=== PATIENT | female | born 1945 | race Caucasian/White ===

== ENCOUNTER 2020-05-13 11:52 | Emergency (ER) | payer MEDICARE, SELFPAY ==
--- NOTE | ~2020-05-13 | XR_ITS ---
EXAMINATION: XR wrist LT min 3V DATE: 05/13/2020 12:20 INDICATION: Wrist pain after dog bite TECHNIQUE: Posteroanterior, ulnar deviation, oblique, and lateral views of the left wrist were obtain ed. COMPARISON: None available FINDINGS: There is soft tissue swelling of the wrist. No acute osseous abnormality is identified. The re is advanced osteoarthritis at the first carpometacarpal joint. Calcified atherosclerosis is noted. IMPRESSION: 1. Wrist soft tissue swelling without acute osseous abnormality. 2. Advanced osteoarthritis at the first carpometacarpal joint. Reviewed, dictated and finalized at location A.
[2020-05-13 11:56] VITALS: BP 130/62; PULSE 70; RESP 18; TEMP 36.4; O2SAT 98
--- NOTE | 2020-05-13 12:16 | ED.GENADULT ---
HPI - General Adult General Chief complaint: Animal Bite Stated complaint: dog bite Time Seen by Provider: 05/13/20 12:10 Source: patient Mode of arrival: ambulatory Limitations: no limitations History of Present Illness HPI narrative: Patient is a 75-year-old female who presents to emergency department for evaluation of dog bite to the left wrist 1 superficial linear laceration along the lateral aspect of the wrist and 1 on the palmar aspect that is more consistent with a puncture wound patient on arrival to emergency department per private vehicle is in no distress not taking anything for her pain patient notes her tetanus is not likely up-to-date patient was out in her yard when her neighbors dog ran out and bit the patient Related Data Home Medications Medication Instructions Recorded Confirmed amoxicillin 05/13/20 aspirin [Aspir-81] 05/13/20 atorvastatin 05/13/20 furosemide 05/13/20 metoprolol succinate PO 05/13/20 sacubitril-valsartan [Entresto] tablet 05/13/20 spironolactone 05/13/20 Allergies Allergy/AdvReac Type Severity Reaction Status Date / Time No Known Allergies Allergy Verified 05/13/20 12:53 Review of Systems Review of Systems: All systems reviewed & are unremarkable except as noted in HPI and below PMFSH Social History Social History (Updated 05/13/20 @ 12:17 by Joe Oliveira PA-C) Smoking status: Never smoker Gender identity (if verbalized by the patient): Female Exam Narrative: Exam Narrative: GENERAL: Well-appearing, well-nourished, and in no acute distress. HEAD: Normocephalic, atraumatic. EYES: PERRLA and EOMI. ENT: Nares clear, no rhinorrhea or epistaxis. Mucous membranes moist. EXTREMITIES: Normal range of motion. No edema. SKIN: Warm, dry, no rash. Puncture wound of the palmar aspect of the left hand with 1 cm linear superficial laceration along the lateral aspect of the wrist joint NEURO: No focal deficits. Alert and oriented x3. Neurovascularly intact PSYCH: Normal mood and affect. Course Course Emergency Course: Patient in the room in no distress aware of case findings treatment plan and diagnosis was given tetanus in the emergency department will be sent home with antibiotics with primary care follow-up given instructions on reasons to return Vital Signs Vital signs: Vital Signs Temperature 97.6 F 05/13/20 11:56 Pulse Rate 70 08/22/20 11:56 Respiratory Rate 18 05/13/20 11:56 Blood Pressure 130/62 05/13/20 11:56 Pulse Oximetry 98 05/13/20 11:56 Temperature 97.6 F 05/13/20 11:56 Pulse Rate 70 05/13/20 11:56 Respiratory Rate 18 05/13/20 11:56 Blood Pressure 130/62 05/13/20 11:56 Pulse Oximetry 98 05/13/20 11:56 Medical Decision Making MDM Narrative Medical decision making narrative: Patients injury or pain is consistent with musculoskeletal etiology. No signs of neurological or vascular compromise on exam. Compartments and tisues are soft without signs of compartment syndrome. Pain is felt appropriate for further evaluation on an outpatient basis. Vital Signs Vital Signs: Vital Signs Temperature 97.6 F 05/13/20 11:56 Pulse Rate 70 05/13/20 11:56 Respiratory Rate 18 05/13/20 11:56 Blood Pressure 130/62 05/13/20 11:56 Pulse Oximetry 98 05/13/20 11:56 Temperature 97.6 F 05/13/20 11:56 Pulse Rate 70 05/13/20 11:56 Respiratory Rate 18 05/13/20 11:56 Blood Pressure 130/62 05/13/20 11:56 Pulse Oximetry 98 05/13/20 11:56 Imaging Data Radiologist's impression: ITS Impressions Wrist X-Ray 05/13/20 12:27 IMPRESSION: 1. Wrist soft tissue swelling without acute osseous abnormality. 2. Advanced osteoarthritis at the first carpometacarpal joint. Discharge Plan Discharge Clinical Impression: Puncture wound of left wrist, Dog bite Patient Disposition: Home, Self-Care Condition: Stable Instructions: Antibiotic Form, Animal Bite (ED) Additional Instru
[2020-05-13] MEDS: ACETAMINOPHEN 500 MG TABLET 1000 MG PO (12:57)
[2020-05-13] MEDS: AMOXICILLIN/CLAVULANATE K 875-125 MG TAB 1 TABLET PO (12:58)
[2020-05-13] MEDS: TETANUS,DIPHTHERIA,AC PERTUSSIS ADULT (0.5 ML) BOOSTRIX IM (12:59)
== END 2020-05-13 13:08 | disposition home or self-care (01) ==
PROVIDERS: Emergency Provider Emergency Medicine; PCP Family Medicine
DX: S61.552A Open bite of left wrist, initial encounter (principal); Z79.82 Long term (current) use of aspirin; M19.032 Primary osteoarthritis, left wrist; W54.0XXA Bitten by dog, initial encounter; Z23 Encounter for immunization
CPT/HCPCS: 73110; 90471; 90715; 99283; A9270

== ENCOUNTER 2021-06-13 20:38 | Observation (INO) | payer MEDICARE, SELFPAY ==
--- NOTE | ~2021-06-13 | XR_ITS ---
EXAMINATION: XR chest 2V DATE: 06/13/2021 21:33 INDICATION: Hyperkalemia. Lightheaded. TECHNIQUE: PA and lateral views of the chest were obtained. COMPARISON: Chest radiograph dated 03/11/[address] dated 04/03/2017 FINDINGS: Mild increased interstitial pattern at the right lung base consistent with minimal pulmonary edema. N o pleural effusion or pneumothorax. Mild cardiomegaly. Median sternotomy wires, ostial markers and m ediastinal surgical clips consistent with prior coronary artery bypass grafting. Aortic valve repair. Single lead cardiac pacemaker/AICD with lead tip in the right ventricle. Mild thoracic kyphosis with severe spondylosis and mild anterior wedging of a few mid and lower thoracic vertebral bodies. IMPRESSION: 1. Minimal pulmonary edema at the right lung base. 2. Cardiomegaly. Reviewed, dictated and finalized at location A.
--- NOTE | 2021-06-13 21:21 | ECG_ITS ---
Measurements Intervals [place] Rate: 54 P: 40 OH: 190 QRS: 64 QRSD: 118 T: 133 QT: 444 QTc: 422 Interpretive Statements SINUS BRADYCARDIA POSSIBLE LEFT ATRIAL ENLARGEMENT INTRAVENTRICULAR CONDUCTION DELAY CANNOT RULE OUT SEPTAL INFARCT, AGE INDETERMINATE ST-T WAVE ABNORMALITY IN LAT/HIGH LAT LEADS- CONSIDER ISCHEMIA BASELINE ARTIFACT- V5 ABNORMAL ECG Electronically Signed On 06-14-2021 6:26:24 CDT by Pawan Adame D.O.
[2021-06-13 21:22] VITALS: BP 122/74; PULSE 60; RESP 14; TEMP 36.7; O2SAT 98
[2021-06-13 21:38] VITALS: BP 103/50; PULSE 55; RESP 22; TEMP 36.8; O2SAT 100
[2021-06-13 22:03] LABS: Basophils Absolute Auto 0.1 K/mm3 (0.0-0.1); Basophils Percent Auto 0.4 % (0.2-1.2); Eosinophils Absolute Auto 0.2 K/mm3 (0-0.3); Eosinophils Percent Auto 1.5 % (0-4.4); Hematocrit 33.9 % (37.0-47.0); Hemoglobin 10.6 g/dL (12.0-15.0); Immature Granulocyte Absolute 0.11 K/mm3 (0.00-0.031); Immature Granulocyte Percent A 0.7 % (0-0.5); Lymphocytes Absolute Auto 2.86 K/mm3 (0.9-3.2); Lymphocytes Percent Auto 18.3 % (18.3-44.2); Mean Corpuscular HGB Conc 31.3 g/dl (32-36); Mean Corpuscular Hemoglobin 29.9 pg (26-34); Mean Corpuscular Volume 95.8 fl (80-100); Mean Platelet Volume 8.8 fl (7.4-10.4); Monocytes Absolute Auto 1.3 K/mm3 (0.1-0.6); Neutrophils Absolute Auto 11.1 K/mm3 (1.3-6.7); Neutrophils Percent Auto 71.1 % (45.5-73.1); Platelet Count Result 356 k/mm3 (150-375); Red Blood Count 3.54 M/mm3 (4.2-5.4); Red Cell Distribution Width 13.6 % (11.5-14.5); White Blood Count 15.7 K/mm3 (4.5-10.0)
[2021-06-13 22:19] LABS: Partial Thromboplastin Time 28.1 SECONDS (22.3-36.8); Prothrombin Time 13.4 Seconds (11.1-14.7)
--- NOTE | 2021-06-13 22:35 | ED.RECABL ---
HPI - Recheck/Abnormal Lab/Rx General Chief Complaint: Recheck/Abnormal Lab/Rx Stated Complaint: abnormal labs Time Seen by Provider: 06/13/21 21:57 Source: patient Mode of arrival: ambulatory Limitations: no limitations History of Present Illness HPI narrative: Patient is a 76-year-old female was told to go to the emergency room due to elevated potassium. Patient states that she was having her pacemaker checked earlier today at [place], had labs drawn, and was told that her potassium was elevated and to go to the emergency room. Patient denies any symptoms at this time. Patient denies any chest pain, shortness of breath, abdominal pain, nausea, vomiting, diarrhea, fever or chills. Related Data Home Medications Medication Instructions Recorded Confirmed atorvastatin 05/13/20 02/12/21 furosemide 05/13/20 02/12/21 metoprolol succinate PO 05/13/20 02/12/21 spironolactone 05/13/20 02/12/21 cholecalciferol (vitamin D3) 50 50 mcg PO DAILY 11/22/20 02/12/21 mcg (2,000 unit) tablet clopidogrel 75 mg tablet 75 mg PO DAILY 02/08/21 02/12/21 amoxicillin 06/13/21 Allergies Allergy/AdvReac Type Severity Reaction Status Date / Time No Known Allergies Allergy Verified 06/13/21 21:48 Review of Systems Review of Systems: All systems reviewed & are unremarkable except as noted in HPI and below Constitutional: Constitutional: Denies body ache(s), Denies chills, Denies excessive sweating, Denies fatigue, Denies fever(s), Denies headache(s), Denies lethargy, Denies malaise, Denies weakness and Denies weight loss Eyes: Eyes: Denies blurry vision, Denies change in vision and Denies loss of vision ENT: Denies dizziness, Denies ear discharge, Denies headache(s), Denies lip swelling, Denies epistaxis, Denies nasal congestion, Denies neck pain, Denies throat swelling and Denies tongue swelling Cardiovascular: Cardiovascular: Denies chest pain, Denies chest pain at rest, Denies chest pain with activity, Denies diaphoresis, Denies rapid heart rate, Denies edema, Denies irregular heart rhythm, Denies lightheadedness, Denies palpitations, Denies dyspnea and Denies dyspnea on exertion Respiratory: Respiratory: Denies chest congestion, Denies cough, Denies hemoptysis, Denies dyspnea and Denies dyspnea on exertion Gastrointestinal: Gastrointestinal: Denies abdominal pain, Denies melena, Denies hematochezia, Denies diarrhea, Denies nausea, Denies vomiting and Denies hematemesis Musculoskeletal: Musculoskeletal: Denies abnormal gait, Denies deformity, Denies joint swelling, Denies limited range of motion, Denies neck pain and Denies numbness Neurologic: Denies Abnormal speech present, Denies abnormal gait, Denies confusion, Denies dizziness, Denies headache(s), Denies focal weakness, Denies loss of vision, Denies numbness, Denies Other visual disturbances, Denies Sensory deficit (Neuro) and Denies weakness Psychiatric: Psychiatric: Denies confusion, Denies depression, Denies auditory hallucinations, Denies homicidal ideation and Denies suicidal ideation Endocrine: Endocrine: Denies cold intolerance, Denies excessive sweating, Denies fatigue, Denies heat intolerance and Denies palpitations Hematologic/Lymphatic: Hematologic/Lymphatic: Denies easy bleeding and Denies easy bruising Allergic/Immunologic: Allergic/Immunologic: Denies lip swelling, Denies throat swelling and Denies tongue swelling PMFSH Past Medical History Medical History Cardiac device in situ 2018 Heart disease HTN (hypertension) Surgical History Surgical History Heart valve replaced (~2016) History of aortic valve replacement with bioprosthetic valve 2016 History of cholecystectomy (~1972) S/P triple vessel bypass (~2016) Family History Family History Mother Hypertension Cataract Glaucoma Father
[2021-06-13 22:39] LABS: Troponin I 0.019 ng/mL (0.000-0.034)
[2021-06-13 22:55] LABS: Anion Gap 10 mmol/L (8-16); Blood Urea Nitrogen 62 mg/dL (7-17); Calcium 9.3 mg/dL (8.4-10.2); Carbon Dioxide 16 mmol/L (22-30); Chloride 115 mmol/L (98-107); Estimated Glomerular Filt Rate 37; Glucose 100 mg/dL (65-110); Potassium 6.3 mmol/L (3.4-5.0); Sodium 141 mmol/L (137-145)
[2021-06-13] MEDS: SODIUM POLYSTYRENE SULFONONATE 15 GM/60 ML BTL PO (23:24)
[2021-06-13] MEDS: DEXTROSE 50% 25 GM/50 ML SYRINGE IV PUSH (23:25)
[2021-06-13 23:30] VITALS: PULSE 60; RESP 24
[2021-06-13] MEDS: INSULIN HUMAN REGULAR (*BKC) 100 UNITS/ML 10 UNITS IV PUSH (23:30)
[2021-06-13] MEDS: ALBUTEROL SULFATE NEB 2.5 MG/0.5 ML INH 10 MG INHALATION (23:31)
--- NOTE | 2021-06-13 23:35 | PCRCNOTE ---
Pt given albuterol hr-long neb for increased potassium. About 5 minutes into tx, pt's heart rate increased from 60 bpm to [address] Elise notified. He asked that I continue to watch it and keep him informed. Heart rate decreased back to 59 bpm with a minute or two. Pt advised to let the nurse know if she starts feeling jittery.
[2021-06-14] VITALS (11 sets, daily range): BP systolic 94–106; BP diastolic 39–48; PULSE 62–84; RESP 16–20; TEMP 36.6–36.8; O2SAT 96–100; BMI 27.6
[2021-06-14] MEDS: SODIUM CHLORIDE 0.9% IV 500 ML 90 ML IV CONT (00:12)
[2021-06-14 00:43] LABS: Glucose Point of Care 66 mg/dl (65-105)
[2021-06-14] MEDS: CALCIUM GLUC 1,000 MG/NS 50 ML 1,000 MG/50 ML BAG 100 MG IVPB (01:45)
--- NOTE | 2021-06-14 03:53 | ADMGEN ---
This patient, Jessenia Padilla, was admitted to Medical Room 249-01. Patient/family oriented to hospital policies and general routines including ID bracelet, bed and alarms, visiting hours, pain management, procedures, bathroom and other care routines, personal items, smoking policy, room service/diet, and visiting hours. Information on how to activate the Rapid Response Team has been discussed. Patient/Family are encouraged to report perceived risks to care and to ask questions if they do not understand what they are told or what they should do.
--- NOTE | 2021-06-14 03:53 | PM.IMHP ---
H&P: HPI History of Present Illness Date/Time: 06/14/21 03:53 Chief Complaint: Abnormal labs Narrative: Patient is a 76-year-old female who is here in the ER due to abnormal labs. She says states that she went to follow-up with her guitar maker hand for device check routinely and had her blood drawn at that time. He was later called by her spa manager/esthetician to go to the ER urgently due to abdominal labs. She was noted to have hyperkalemia with level of 6.5 along with creatinine of 1.3 which is elevated from her previous labs. See otherwise is asymptomatic and reports no complaints she denies any shortness of breath or chest pain no fever chills abdominal pain nausea vomiting. She does report that she has been having lowish blood pressure over the past few months which is not persistent but has been lower than were used to be in the past. Also over the past week she had been having loose stools 3-4 episode more watery than normal which is also been improving the. Due to the increased diarrhea and loose stool she had been taking more bananas and also Pedialyte which has increased amount of potassium in it. She denies any increased leg swelling. She states she was diagnosed with ischemic cardiomyopathy and underwent bypass grafting and aortic valve replacement with pig valve 4 years back. She was noted to have a ejection fraction of around 12% of the time which did improve but not to the extent and had been placed on pacemaker/defibrillator. She states she does not quite know what her ejection fraction currently he is but has improved up to 40% in the recent past. More recently in February she underwent echocardiogram followed by stress test which showed some abnormal features for which she underwent cardiac catheterization and had stent placed in February 2021. She has been on aspirin and Plavix since then. She denies any bleeding or dark stool or blood in stool. Review of Systems Review of Systems: - CONSTITUTIONAL: Denies weight loss, fever and chills. - HEENT: Denies changes in vision and hearing - RESPIRATORY: Denies SOB and cough. - CV: Denies palpitations and CP. - GI: Denies abdominal pain, nausea, vomiting and Reports week history of diarrhea. - : Denies dysuria and urinary frequency. - MSK: Denies myalgia and joint pain. - SKIN: Denies rash and pruritus. - NEUROLOGICAL: Denies headache and syncope. - PSYCHIATRIC: Denies recent changes in mood. Denies anxiety and depression. All systems reviewed & are unremarkable except as noted in HPI and below Constitutional: Constitutional: Reports fatigue and Reports weakness Neurologic: Reports weakness Endocrine: Endocrine: Reports fatigue [facility] Past Medical History Medical History Cardiac device in situ 2018 Heart disease HTN (hypertension) Surgical History Surgical History Heart valve replaced (~2016) History of aortic valve replacement with bioprosthetic valve 2016 History of cholecystectomy (~1972) S/P triple vessel bypass (~2016) Family History Family History Mother Hypertension Cataract Glaucoma Father Heart disease Hypertension Social History Social History Smoking status: Former smoker Gender identity (if verbalized by the patient): Female Meds Home Medications and Allergies Home Medications Medication Instructions Recorded Confirmed Type atorvastatin 05/13/20 02/12/21 History furosemide 05/13/20 02/12/21 History metoprolol succinate PO 05/13/20 02/12/21 History spironolactone 05/13/20 02/12/21 History cholecalciferol (vitamin D3) 50 50 mcg PO DAILY 11/22/20 02/12/21 History mcg (2,000 unit) tablet clopidogrel 75 mg tablet 75 mg PO DAILY 02/08/21 02/12/21 History amoxicillin
[2021-06-14 04:11] LABS: Basophils Absolute Auto 0.1 K/mm3 (0.0-0.1); Basophils Percent Auto 0.5 % (0.2-1.2); Eosinophils Absolute Auto 0.2 K/mm3 (0-0.3); Eosinophils Percent Auto 1.2 % (0-4.4); Hematocrit 32.6 % (37.0-47.0); Hemoglobin 10.2 g/dL (12.0-15.0); Immature Granulocyte Absolute 0.08 K/mm3 (0.00-0.031); Immature Granulocyte Percent A 0.6 % (0-0.5); Lymphocytes Absolute Auto 2.54 K/mm3 (0.9-3.2); Lymphocytes Percent Auto 17.8 % (18.3-44.2); Mean Corpuscular HGB Conc 31.3 g/dl (32-36); Mean Corpuscular Hemoglobin 29.7 pg (26-34); Mean Platelet Volume 8.6 fl (7.4-10.4); Monocytes Absolute Auto 1.2 K/mm3 (0.1-0.6); Monocytes Percent Auto 8.3 % (2.6-8.5); Neutrophils Absolute Auto 10.2 K/mm3 (1.3-6.7); Neutrophils Percent Auto 71.6 % (45.5-73.1); Platelet Count Result 324 k/mm3 (150-375); Red Blood Count 3.43 M/mm3 (4.2-5.4); Red Cell Distribution Width 13.6 % (11.5-14.5); White Blood Count 14.2 K/mm3 (4.5-10.0)
[2021-06-14 04:26] LABS: Anion Gap 11 mmol/L (8-16); Blood Urea Nitrogen 58 mg/dL (7-17); Calcium 9.7 mg/dL (8.4-10.2); Carbon Dioxide 15 mmol/L (22-30); Chloride 116 mmol/L (98-107); Estimated Glomerular Filt Rate 48; Glucose 99 mg/dL (65-110); Potassium 5.5 mmol/L (3.4-5.0); Sodium 142 mmol/L (137-145)
[2021-06-14] MEDS: SODIUM CHLORIDE 0.9% IV 1,000 ML 50 ML IV CONT (05:38)
[2021-06-14] MEDS: SODIUM POLYSTYRENE SULFONONATE 15 GM/60 ML BTL PO (05:38)
[2021-06-14 06:03] LABS: Add Urine Microscopic? YES; Appearance Urine Clear (Clear); Bilirubin Urine Negative (Negative); Blood Urine 1+ (Negative); Color Urine Yellow (Yellow); Glucose Urine UA Negative (Negative); Ketones Urine Negative (Negative); Leukocyte Esterase Ur Trace LEU/UL (NEGATIVE); Mucus Urine Rare /lpf; Nitrate Urine Negative (Negative); Protein Urine Negative (Negative); RBC Urine 0-2 /hpf (0-2); Specific Grav Ur 1.017 (1.001-1.035); Squamous Epithelial Cell Urine Few /hpf (Few); Urobilinogen Urine Negative mg/dL (<2.0); WBC Urine 0-3 /hpf (0-3)
--- NOTE | 2021-06-14 07:04 | P.PNIM_ITS ---
Progress Note: A&P Assessment and Plan (1) Acute hyperkalemia: Code(s): E87.5 - Hyperkalemia Status: Acute Assessment and Plan: * Outside labs checked, was told to report to ED for further management * reports eating more bananas and drinking Pedialyte, probably rational for hyperkalemia * K 6.3 on arrival * K today is 5.5 * Given albuterol, Calcium, insulin, glucose, and Kayexalate in ED * IV hydration 50ml/hr * Hold Entresto and spironolactone for now * trend labs (2) Acute kidney injury superimposed on chronic kidney disease: Code(s): N17.9 - Acute kidney failure, unspecified; N18.9 - Chronic kidney disease, unspecified Status: Acute Assessment and Plan: * On CKD stage 3 baseline creatinine 0.9 currently 1.1 with recent worsening of diarrhea likely pre renal. * Received 1 L fluid in the ER * Creatinine on admission was 1.40 * Trending down, 1.10 today * Hydration at 50ml/hr, watch for overload due to cardiomyopathy * GFR 37 on admission, and 48 with hydration * Continue to trend labs * avoid nephrotoxic medications * hold Entresto, spironolactone, furosemide * Strict I&O * Probably from dehydration (3) Chronic CHF (congestive heart failure): Qualifiers: Heart failure type: unspecified Qualified Code(s): I50.9 - Heart failure, unspecified Code(s): I50.9 - Heart failure, unspecified Status: Acute Assessment and Plan: * Hx of ischemic cardiomyopathy * Chest xray shows minimal pulmonary edema * Strict I and Os * Home lasix on hold for now with DONATO * Consider restarting at later time * Trend output (4) Gout: Code(s): M10.9 - Gout, unspecified Status: Acute Assessment and Plan: * Uric acid elevated at 9.1 * Consider adding allopurinol 50mg/day due to GFR * Gout attack reported in right foot treated with dietart intervention * Presented with edema * Monitor (5) IBS (irritable bowel syndrome): Code(s): K58.9 - Irritable bowel syndrome without diarrhea Status: Acute Assessment and Plan: * Reports 3-4 episodes of loose stools every day over the last week * Consider adding banatrol and Florastor for bulking * Continue to hydrate * Encourage fluids PO (6) HTN (hypertension): Qualifiers: Hypertension type: essential hypertension Qualified Code(s): I10 - Essential (primary) hypertension Code(s): I10 - Essential (primary) hypertension Status: Acute Assessment and Plan: * Blood pressures have been a little soft today. * Current blood pressure is 94/48 * Metoprolol was cut in half at 50 mg b.i.d. * Trend blood pressure * Adjust blood pressure medications as needed (7) Ischemic cardiomyopathy with implantable cardioverter-defibrillator (ICD): Code(s): I25.5 - Ischemic cardiomyopathy; Z95.810 - Presence of automatic (implantable) cardiac defibrillator Status: Acute Assessment and Plan: * Placed in 2019 * EF 14% in 2019 * Improved to about 40% * Continue to monitor (8) Anemia: Code(s): D64.9 - Anemia, unspecified Status: Acute Assessment and Plan: * Hemoglobin hematocrit today are 10.2/32.6 * Trend labs * Anemia labs ordered and pending * No signs of bleeding * Probably related to chronic disease * Looks like in 11/18/20 patient HGB was 12.4 (9) Metabolic aci
--- NOTE | 2021-06-14 07:04 | PM.IMPN ---
Progress Note: A&P Assessment and Plan (1) Acute hyperkalemia: Code(s): E87.5 - Hyperkalemia Status: Acute Assessment and Plan: Outside labs checked, was told to report to ED for further management reports eating more bananas and drinking Pedialyte, probably rational for hyperkalemia K 6.3 on arrival K today is 5.5 Given albuterol, Calcium, insulin, glucose, and Kayexalate in ED IV hydration 50ml/hr Hold Entresto and spironolactone for now trend labs (2) Acute kidney injury superimposed on chronic kidney disease: Code(s): N17.9 - Acute kidney failure, unspecified; N18.9 - Chronic kidney disease, unspecified Status: Acute Assessment and Plan: On CKD stage 3 baseline creatinine 0.9 currently 1.1 with recent worsening of diarrhea likely pre renal. Received 1 L fluid in the ER Creatinine on admission was 1.40 Trending down, 1.10 today Hydration at 50ml/hr, watch for overload due to cardiomyopathy GFR 37 on admission, and 48 with hydration Continue to trend labs avoid nephrotoxic medications hold Entresto, spironolactone, furosemide Strict I&O Probably from dehydration (3) Chronic CHF (congestive heart failure): Qualifiers: Heart failure type: unspecified Qualified Code(s): I50.9 - Heart failure, unspecified Code(s): I50.9 - Heart failure, unspecified Status: Acute Assessment and Plan: Hx of ischemic cardiomyopathy Chest xray shows minimal pulmonary edema Strict I and Os Home lasix on hold for now with DONATO Consider restarting at later time Trend output (4) Gout: Code(s): M10.9 - Gout, unspecified Status: Acute Assessment and Plan: Uric acid elevated at 9.1 Consider adding allopurinol 50mg/day due to GFR Gout attack reported in right foot treated with dietart intervention Presented with edema Monitor (5) IBS (irritable bowel syndrome): Code(s): K58.9 - Irritable bowel syndrome without diarrhea Status: Acute Assessment and Plan: Reports 3-4 episodes of loose stools every day over the last week Consider adding banatrol and Florastor for bulking Continue to hydrate Encourage fluids PO (6) HTN (hypertension): Qualifiers: Hypertension type: essential hypertension Qualified Code(s): I10 - Essential (primary) hypertension Code(s): I10 - Essential (primary) hypertension Status: Acute Assessment and Plan: Blood pressures have been a little soft today. Current blood pressure is 94/48 Metoprolol was cut in half at 50 mg b.i.d. Trend blood pressure Adjust blood pressure medications as needed (7) Ischemic cardiomyopathy with implantable cardioverter-defibrillator (ICD): Code(s): I25.5 - Ischemic cardiomyopathy; Z95.810 - Presence of automatic (implantable) cardiac defibrillator Status: Acute Assessment and Plan: Placed in 2019 EF 14% in 2019 Improved to about 40% Continue to monitor (8) Anemia: Code(s): D64.9 - Anemia, unspecified Status: Acute Assessment and Plan: Hemoglobin hematocrit today are 10.2/32.6 Trend labs Anemia labs ordered and pending No signs of bleeding Probably related to chronic disease Looks like in 11/18/20 patient HGB was 12.4 (9) Metabolic acidosis: Code(s): E87.2 - Acidosis Status: Acute Assessment and Plan: Related to diarrhea and DONATO Bicarb on this 15 Trend labs (10) CAD (coronary artery disease): Code(s): I25.10 - Atherosclerotic heart disease of [place] coronary artery without angina pectoris Status: Acute Assessment and Plan: status post CABG x 3 (2016), JARVIS to LAD, SVG to OM, and SVG to RCA cardiac stent placed in SVG to OM in February of [address] Locke with [facility] Continue with aspirin 81mg PO daily Clopidogrel 75mg PO daily
[2021-06-14] MEDS: ASPIRIN 81 MG CHEWABLE TABLET PO (08:09)
[2021-06-14] MEDS: CLOPIDOGREL BISULFATE 75 MG TABLET PO (08:09)
[2021-06-14] MEDS: ATORVASTATIN 40 MG TABLET 80 MG PO (08:09)
[2021-06-14 08:43] LABS: Magnesium 1.8 mg/dL (1.6-2.3)
[2021-06-14 08:53] LABS: Transferrin 191 mg/dL (206-381)
[2021-06-14 08:59] LABS: Immature Reticulocyte Fraction 7.4 % (3.0-15.9); Reticulocyte Percent 3.12 % (0.7-4.3); Reticulocytes Absolute 0.11 B/L (32.2-175.7)
[2021-06-14 09:46] LABS: Iron 59 ug/dL (37-170)
[2021-06-14 09:56] LABS: Percent Iron Saturation 20 % (20-50)
[2021-06-14 09:57] LABS: Folic Acid 6.8 ng/mL (2.76->20)
[2021-06-14] MEDS: METOPROLOL SUCCINATE EXT REL 50 MG TABCR PO (10:06)
[2021-06-14 10:54] LABS: Free T4 Free Thyroxine Reflex 0.91 ng/dL (0.78-2.19)
[2021-06-14 12:06] LABS: Total Triiodothyronine (T3) 0.98 NG/ML (0.97-1.69)
[2021-06-15] VITALS: PULSE 60
[2021-06-15] MEDS: SODIUM CHLORIDE 0.9% IV 1,000 ML 50 ML IV CONT (02:04)
[2021-06-15 04:00] VITALS: PULSE 58
[2021-06-15 04:41] VITALS: BP 95/45; PULSE 63; RESP 18; TEMP 36.1; O2SAT 97
[2021-06-15 05:23] LABS: Basophils Absolute Auto 0.1 K/mm3 (0.0-0.1); Basophils Percent Auto 0.4 % (0.2-1.2); Eosinophils Absolute Auto 0.2 K/mm3 (0-0.3); Eosinophils Percent Auto 1.9 % (0-4.4); Hematocrit 28.8 % (37.0-47.0); Immature Granulocyte Absolute 0.06 K/mm3 (0.00-0.031); Immature Granulocyte Percent A 0.5 % (0-0.5); Lymphocytes Absolute Auto 2.05 K/mm3 (0.9-3.2); Lymphocytes Percent Auto 17.4 % (18.3-44.2); Mean Corpuscular HGB Conc 31.3 g/dl (32-36); Mean Corpuscular Hemoglobin 29.7 pg (26-34); Monocytes Absolute Auto 1.1 K/mm3 (0.1-0.6); Monocytes Percent Auto 8.9 % (2.6-8.5); Neutrophils Absolute Auto 8.3 K/mm3 (1.3-6.7); Neutrophils Percent Auto 70.9 % (45.5-73.1); Platelet Count Result 283 k/mm3 (150-375); Red Blood Count 3.03 M/mm3 (4.2-5.4); Red Cell Distribution Width 13.7 % (11.5-14.5); White Blood Count 11.8 K/mm3 (4.5-10.0)
[2021-06-15 05:49] LABS: Alanine Aminotransferase 21 U/L (4-35); Albumin Level 3.3 g/dL (3.5-5.1); Alkaline Phosphatase 91 U/L (38-126); Anion Gap 7 mmol/L (8-16); Aspartate Amino Transferase 23 U/L (14-36); Bilirubin,Total 0.3 mg/dL (0.2-1.3); Blood Urea Nitrogen 34 mg/dL (7-17); Calcium 8.7 mg/dL (8.4-10.2); Carbon Dioxide 17 mmol/L (22-30); Chloride 117 mmol/L (98-107); Estimated Glomerular Filt Rate > 60; Glucose 87 mg/dL (65-110); Magnesium 1.6 mg/dL (1.6-2.3); Sodium 141 mmol/L (137-145)
[2021-06-15 08:00] VITALS: PULSE 76
[2021-06-15 08:04] VITALS: PULSE 69
[2021-06-15] MEDS: METOPROLOL SUCCINATE EXT REL 50 MG TABCR PO (08:04)
[2021-06-15] MEDS: CLOPIDOGREL BISULFATE 75 MG TABLET PO (08:04)
[2021-06-15] MEDS: ASPIRIN 81 MG CHEWABLE TABLET PO (08:04)
[2021-06-15] MEDS: ATORVASTATIN 40 MG TABLET 80 MG PO (08:04)
[2021-06-15] MEDS: MAGNESIUM SULF 4 GM/WATER100ML 4 GM/100 ML BAG IVPB (08:08)
--- NOTE | 2021-06-15 10:51 | PCDIET ---
Physician consult. See Nutritional Teaching Intervention. Thank you for the consult.
--- NOTE | 2021-06-15 11:26 | P.DS_ITS ---
DS: Admitting Diagnosis Discharge Date Date of service 08/30/2021 at 8:30 a.m. Admitting Diagnosis Acute kidney injury Hyperkalemia DS: Discharge Diagnosis Discharge Diagnosis (1) Acute hyperkalemia: Code(s): E87.5 - Hyperkalemia Status: Acute Assessment and Plan: * Outside labs checked, was told to report to ED for further management * reports eating more bananas and drinking Pedialyte, probably rational for hyperkalemia * K 6.3 on arrival * K today is 5.0 * Given albuterol, Calcium, insulin, glucose, and Kayexalate in ED * IV hydration 50ml/hr * Hold Entresto and spironolactone for now * trend labs Test Fixture Designer office contacted at [facility] will continue to hold the Entresto and spironolactone will continue metoprolol 50 mg daily patient will need to get labs in 4 days and follow up on FridayJune 20 at 10:30 a.m. (2) Acute kidney injury superimposed on chronic kidney disease: Code(s): N17.9 - Acute kidney failure, unspecified; N18.9 - Chronic kidney disease, unspecified Status: Acute Assessment and Plan: * On CKD stage 3 baseline creatinine 0.9 currently 1.1 with recent worsening of diarrhea likely pre renal. * Received 1 L fluid in the ER * Creatinine on admission was 1.40 * Trending down, 0.90 today * Hydration at 50ml/hr, watch for overload due to cardiomyopathy * GFR 37 on admission, and 48 with hydration * Continue to trend labs * avoid nephrotoxic medications * hold Entresto, spironolactone, furosemide * Strict I&O * Probably from dehydration (3) Chronic CHF (congestive heart failure): Qualifiers: Heart failure type: unspecified Qualified Code(s): I50.9 - Heart failure, unspecified Code(s): I50.9 - Heart failure, unspecified Status: Acute Assessment and Plan: * Hx of ischemic cardiomyopathy * Chest xray shows minimal pulmonary edema * Strict I and Os * Home lasix on hold for now with DONATO * Consider restarting at later time * Trend output (4) Gout: Code(s): M10.9 - Gout, unspecified Status: Acute Assessment and Plan: * Uric acid elevated at 9.1 * Consider adding allopurinol 50mg/day due to GFR * Gout attack reported in right foot treated with dietart intervention * Presented with edema * Monitor (5) IBS (irritable bowel syndrome): Code(s): K58.9 - Irritable bowel syndrome without diarrhea Status: Acute Assessment and Plan: * Reports 3-4 episodes of loose stools every day over the last week * Consider adding banatrol and Florastor for bulking * Continue to hydrate * Encourage fluids PO (6) HTN (hypertension): Qualifiers: Hypertension type: essential hypertension Qualified Code(s): I10 - Essential (primary) hypertension Code(s): I10 - Essential (primary) hypertension Status: Acute Assessment and Plan: * Blood pressures have been a little soft today. * Current blood pressure is 94/48 * Metoprolol was cut in half at 50 mg b.i.d. * Trend blood pressure * Adjust blood pressure medications as needed (7) Ischemic cardiomyopathy with implantable cardioverter-defibrillator (ICD): Code(s): I25.5 - Ischemic cardiomyopathy; Z95.810 - Presence of automatic (implantable) cardiac defibrillator Status: Acute Assessment and Plan: * Placed in 2019 * EF 14% in 2019 * Improved to about 40% * Continue to monitor
--- NOTE | 2021-06-15 11:26 | PM.DS ---
DS: Admitting Diagnosis Discharge Date Date of service 08/30/2021 at 8:30 a.m. Admitting Diagnosis Acute kidney injury Hyperkalemia DS: Discharge Diagnosis Discharge Diagnosis (1) Acute hyperkalemia: Code(s): E87.5 - Hyperkalemia Status: Acute Assessment and Plan: Outside labs checked, was told to report to ED for further management reports eating more bananas and drinking Pedialyte, probably rational for hyperkalemia K 6.3 on arrival K today is 5.0 Given albuterol, Calcium, insulin, glucose, and Kayexalate in ED IV hydration 50ml/hr Hold Entresto and spironolactone for now trend labs Health Social Work Professor office contacted at [facility] will continue to hold the Entresto and spironolactone will continue metoprolol 50 mg daily patient will need to get labs in 4 days and follow up on FridayJune 20 at 10:30 a.m. (2) Acute kidney injury superimposed on chronic kidney disease: Code(s): N17.9 - Acute kidney failure, unspecified; N18.9 - Chronic kidney disease, unspecified Status: Acute Assessment and Plan: On CKD stage 3 baseline creatinine 0.9 currently 1.1 with recent worsening of diarrhea likely pre renal. Received 1 L fluid in the ER Creatinine on admission was 1.40 Trending down, 0.90 today Hydration at 50ml/hr, watch for overload due to cardiomyopathy GFR 37 on admission, and 48 with hydration Continue to trend labs avoid nephrotoxic medications hold Entresto, spironolactone, furosemide Strict I&O Probably from dehydration (3) Chronic CHF (congestive heart failure): Qualifiers: Heart failure type: unspecified Qualified Code(s): I50.9 - Heart failure, unspecified Code(s): I50.9 - Heart failure, unspecified Status: Acute Assessment and Plan: Hx of ischemic cardiomyopathy Chest xray shows minimal pulmonary edema Strict I and Os Home lasix on hold for now with DONATO Consider restarting at later time Trend output (4) Gout: Code(s): M10.9 - Gout, unspecified Status: Acute Assessment and Plan: Uric acid elevated at 9.1 Consider adding allopurinol 50mg/day due to GFR Gout attack reported in right foot treated with dietart intervention Presented with edema Monitor (5) IBS (irritable bowel syndrome): Code(s): K58.9 - Irritable bowel syndrome without diarrhea Status: Acute Assessment and Plan: Reports 3-4 episodes of loose stools every day over the last week Consider adding banatrol and Florastor for bulking Continue to hydrate Encourage fluids PO (6) HTN (hypertension): Qualifiers: Hypertension type: essential hypertension Qualified Code(s): I10 - Essential (primary) hypertension Code(s): I10 - Essential (primary) hypertension Status: Acute Assessment and Plan: Blood pressures have been a little soft today. Current blood pressure is 94/48 Metoprolol was cut in half at 50 mg b.i.d. Trend blood pressure Adjust blood pressure medications as needed (7) Ischemic cardiomyopathy with implantable cardioverter-defibrillator (ICD): Code(s): I25.5 - Ischemic cardiomyopathy; Z95.810 - Presence of automatic (implantable) cardiac defibrillator Status: Acute Assessment and Plan: Placed in 2019 EF 14% in 2019 Improved to about 40% Continue to monitor (8) Anemia: Code(s): D64.9 - Anemia, unspecified Status: Acute Assessment and Plan: Hemoglobin hematocrit today are 10.2/32.6 Trend labs Anemia labs ordered and pending No signs of bleeding Probably related to chronic disease Looks like in 11/18/20 patient HGB was 12.4 (9) Metabolic acidosis: Code(s): E87.2 - Acidosis Status: Acute Assessment and Plan: Related to diarrhea and DNOATO Bicarb on this 15 Trend labs (10) CAD (coronary artery disease): Code(s):
[2021-06-15 12:00] VITALS: PULSE 65
== END 2021-06-15 14:50 | disposition home or self-care (01) ==
LOC: ANHED 06-14 01:21 → ANH2MED 06-14 04:55
PROVIDERS: Emergency Medicine; Nurse Practitioner; Admitting Provider Internal Medicine; Emergency Provider Emergency Medicine; PCP Family Medicine; Visit Provider Internal Medicine
DX: E87.5 Hyperkalemia (principal); N17.9 Acute kidney failure, unspecified; I13.0 Hypertensive heart and chronic kidney disease with heart failure and stage 1 through stage 4 chronic kidney disease, or unspecified chronic kidney disease; N18.30 Chronic kidney disease, stage 3 unspecified; I50.9 Heart failure, unspecified; D63.1 Anemia in chronic kidney disease; E87.2 Acidosis; E78.5 Hyperlipidemia, unspecified; I73.9 Peripheral vascular disease, unspecified; I25.5 Ischemic cardiomyopathy; I65.23 Occlusion and stenosis of bilateral carotid arteries; K58.9 Irritable bowel syndrome, unspecified; M10.9 Gout, unspecified; Z95.3 Presence of xenogenic heart valve; Z95.1 Presence of aortocoronary bypass graft; Z79.02 Long term (current) use of antithrombotics/antiplatelets; Z95.810 Presence of automatic (implantable) cardiac defibrillator; Z87.891 Personal history of nicotine dependence
CPT/HCPCS: 36415; 71046; 80048; 80053; 81001; 82533; 82607; 82728; 82746; 82948; 83540; 83550; 83735; 84439; 84443; 84466; 84480; 84484; 85025; 85046; 85610; 85730; 93005; 94640; 96361; 96365; 96375; 99285; A9270; G0378; J0610; J1815; J3475; J7030; J7040

== ENCOUNTER 2021-10-16 12:38 | Outpatient (CLI) | payer MEDICARE, SELFPAY ==
[2021-10-16 13:43] LABS: Basophils Percent Auto 0.6 % (0.2-1.2); Eosinophils Absolute Auto 0.1 K/mm3 (0-0.3); Eosinophils Percent Auto 1.1 % (0-4.4); Hematocrit 33.3 % (37.0-47.0); Hemoglobin 10.4 g/dL (12.0-15.0); Immature Granulocyte Absolute 0.03 K/mm3 (0.00-0.031); Immature Granulocyte Percent A 0.4 % (0-0.5); Lymphocytes Absolute Auto 1.71 K/mm3 (0.9-3.2); Mean Corpuscular HGB Conc 31.2 g/dl (32-36); Mean Corpuscular Hemoglobin 27.4 pg (26-34); Mean Corpuscular Volume 87.9 fl (80-100); Mean Platelet Volume 11.8 fl (7.4-10.4); Monocytes Absolute Auto 0.7 K/mm3 (0.1-0.6); Monocytes Percent Auto 10.3 % (2.6-8.5); Neutrophils Absolute Auto 4.5 K/mm3 (1.3-6.7); Neutrophils Percent Auto 63.6 % (45.5-73.1); Platelet Count Result 266 k/mm3 (150-375); Red Blood Count 3.79 M/mm3 (4.2-5.4); Red Cell Distribution Width 15.6 % (11.5-14.5); White Blood Count 7.1 K/mm3 (4.5-10.0)
[2021-10-16 13:47] LABS: Uric Acid 5.3 mg/dL (2.5-7.5)
[2021-10-16 13:57] LABS: Alanine Aminotransferase 15 U/L (4-35); Albumin Level 3.7 g/dL (3.5-5.1); Alkaline Phosphatase 107 U/L (38-126); Anion Gap 11 mmol/L (8-16); Aspartate Amino Transferase 27 U/L (14-36); Bilirubin,Total 1.2 mg/dL (0.2-1.3); Blood Urea Nitrogen 19 mg/dL (7-17); Calcium 8.7 mg/dL (8.4-10.2); Carbon Dioxide 30 mmol/L (22-30); Chloride 100 mmol/L (98-107); Estimated Glomerular Filt Rate > 60; Glucose 109 mg/dL (65-110); Potassium 2.6 mmol/L (3.4-5.0); Sodium 141 mmol/L (137-145)
[2021-10-16 17:50] LABS: Vitamin D 25 Hydroxy 16.3 ng/mL
== END 2021-10-16 12:39 | disposition home or self-care (01) ==
PROVIDERS: PCP Family Medicine; Visit Provider Family Medicine
DX: E03.9 Hypothyroidism, unspecified (principal); I10 Essential (primary) hypertension; M10.9 Gout, unspecified; E55.9 Vitamin D deficiency, unspecified; D64.9 Anemia, unspecified
CPT/HCPCS: 36415; 80053; 82306; 84443; 84550; 85025

== ENCOUNTER 2022-02-21 20:13 | Observation (INO) | payer MEDICARE, SELFPAY ==
--- NOTE | ~2022-02-21 | CT_ITS ---
EXAMINATION: CT diagnostic chest wo con DATE: 02/21/2022 21:51 INDICATION: Cardiac enlargement TECHNIQUE: Computed tomography (CT) of the chest was performed without intravenous contrast. The dose -length product (DLP) was 155.41 mGy-cm. Automated exposure control and iterative reconstruction tech [employer] were employed. COMPARISON: 04/03/2017 FINDINGS: Cardiomegaly is noted. No significant pericardial effusion is identified. There are subpleu ral reticular opacities with a lower lung zone predominance. There is no pleural effusion or pneumoth orax. There is enlargement of the main and central pulmonary arteries, consistent with pulmonary hype rtension. There are no pathologically enlarged thoracic lymph nodes. There are bridging osteophytes a t multiple levels in the spine, consistent with diffuse idiopathic skeletal hyperostosis (DISH). Ther e is severe thoracic spondylosis. IMPRESSION: 1. Cardiomegaly. No significant pericardial effusion identified. 2. Findings consistent with pulmonary hypertension. Reviewed, dictated and finalized at location F.
--- NOTE | ~2022-02-21 | XR_ITS ---
EXAMINATION: XR chest 2V DATE: 02/21/2022 21:04 INDICATION: Transient alteration of awareness TECHNIQUE: AP and lateral views of the chest are obtained. COMPARISON: 06/13/2021 FINDINGS: The cardiac silhouette is enlarged. There is no pleural effusion or pneumothorax. The lungs are free of acute opacities. A single lead pacemaker of the left chest wall ends with its lead in th e right ventricle. There are changes of cardiac valve surgery. There is severe thoracic spondylosis. IMPRESSION: 1. Enlargement of the cardiac silhouette, likely due to cardiomegaly and/or pericardial effusion. Reviewed, dictated and finalized at location F. IMPRESSION: 1. Enlargement of the cardiac silhouette, likely due to cardiomegaly and/or per icardial effusion.
--- NOTE | ~2022-02-21 | CT_ITS ---
EXAMINATION: CT brain wo con DATE: 02/21/2022 23:32 INDICATION: Dizziness and syncope TECHNIQUE: Computed tomography (CT) of the head was performed without intravenous contrast. The dose- length product was 605.33 mGy-cm. Automated exposure control and iterative reconstruction technique w ere employed. COMPARISON: None FINDINGS: Brain parenchymal volume is normal for age. There are scattered mild periventricular and mayorga bcortical white matter changes, most likely related to small vessel ischemic disease (microangiopathy ). No acute intracranial hemorrhage, infarction, mass or mass effect. No ventriculomegaly or midline shift. Basilar cisterns are patent. No depressed skull fractures. There is intracranial atheroscleros is. IMPRESSION: 1. No acute intracranial abnormality. Reviewed, dictated and finalized at location A.
[2022-02-21 20:19] VITALS: BP 98/57; PULSE 56; RESP 16; TEMP 36.4; O2SAT 99
[2022-02-21 20:49] VITALS: BP 129/57; PULSE 54
--- NOTE | 2022-02-21 20:49 | ECG_ITS ---
Measurements Intervals [place] Rate: 55 P: 53 AK: 187 QRS: 81 QRSD: 145 T: 163 QT: 515 QTc: 495 Interpretive Statements SINUS BRADYCARDIA WITH OCCASIONAL VENTRICULAR PREMATURE COMPLEXES POSSIBLE LEFT ATRIAL ENLARGEMENT [-0.1mV P WAVE IN V1/V2] LEFT BUNDLE BRANCH BLOCK [120+ ms QRS DURATION, 80+ ms Q/S IN V1/V2, 85+ ms R IN I/aVL/V5/V6] ABNORMAL ECG NO PREVIOUS ECG AVAILABLE FOR COMPARISON Electronically Signed On 02-22-2022 16:54:27 CDT by Nick Campos M.D.
[2022-02-21 20:53] VITALS: BP 129/62; PULSE 55
[2022-02-21 20:58] VITALS: BP 119/84; PULSE 77
[2022-02-21 21:13] LABS: Basophils Absolute Auto 0.1 K/mm3 (0.0-0.1); Basophils Percent Auto 0.6 % (0.2-1.2); Eosinophils Absolute Auto 0.3 K/mm3 (0-0.3); Eosinophils Percent Auto 3.8 % (0-4.4); Hematocrit 30.3 % (37.0-47.0); Hemoglobin 9.5 g/dL (12.0-15.0); Immature Granulocyte Absolute 0.08 K/mm3 (0.00-0.031); Immature Granulocyte Percent A 0.9 % (0-0.5); Lymphocytes Absolute Auto 1.64 K/mm3 (0.9-3.2); Lymphocytes Percent Auto 18.8 % (18.3-44.2); Mean Corpuscular HGB Conc 31.4 g/dl (32-36); Mean Corpuscular Hemoglobin 29.8 pg (26-34); Mean Platelet Volume 10.7 fl (7.4-10.4); Monocytes Absolute Auto 0.8 K/mm3 (0.1-0.6); Monocytes Percent Auto 8.9 % (2.6-8.5); Neutrophils Absolute Auto 5.9 K/mm3 (1.3-6.7); Nucleated Red Blood Cells Perc 0.2 % (0.0-0.2); Platelet Count Result 151 k/mm3 (150-375); Red Blood Count 3.19 M/mm3 (4.2-5.4); Red Cell Distribution Width 20.2 % (11.5-14.5); White Blood Count 8.7 K/mm3 (4.5-10.0)
[2022-02-21 21:23] LABS: Alanine Aminotransferase 17 U/L (6-35); Alkaline Phosphatase 104 U/L (38-126); Anion Gap 12 mmol/L (8-16); Aspartate Amino Transferase 30 U/L (14-36); Bilirubin,Total 0.7 mg/dL (0.2-1.3); Blood Urea Nitrogen 44 mg/dL (7-17); Calcium 8.8 mg/dL (8.4-10.2); Carbon Dioxide 21 mmol/L (22-30); Chloride 108 mmol/L (98-107); Estimated Glomerular Filt Rate 40; Glucose 102 mg/dL (65-110); INR 1.2; Prothrombin Time 14.8 Seconds (11.1-14.7); Sodium 141 mmol/L (137-145)
[2022-02-21 21:24] LABS: Partial Thromboplastin Time 32.8 SECONDS (22.3-36.8)
[2022-02-21 21:36] LABS: Troponin I 0.044 ng/mL (0.000-0.034)
--- NOTE | 2022-02-21 21:38 | ED.SYNCOPE ---
HPI - Syncope General Chief Complaint: Syncope Stated Complaint: syncope Time Seen by Provider: 02/21/22 20:29 History of Present Illness HPI narrative: Patient is a 76-year-old female who presents ER status post syncope. Reports that she just finished dinner and she went out to her car with her . When she sat in her car she started to feel dizzy like she was carsick. She was slightly nauseous. The next thing she knows she woke up. Her told her she had been unconscious for couple minutes. She had no loss of bowel or bladder. No tongue biting. No trauma to the head. Patient with known history of heart failure. She has a pacemaker implanted. She believes is also defibrillator. She sees [facility] cardiology [place]. She denies any chest pain or chest pressure. She has no previous history of syncope. Reports her physician has been modifying her diuretics due to some renal insufficiency. No no edema in her feet. Patient has some mild sinus congestion but no ear pressure or tinnitus. Related Data Home Medications Medication Instructions Recorded Confirmed atorvastatin 80 mg tablet 80 mg PO DAILY 05/13/20 10/16/21 furosemide 20 mg tablet 20 mg PO DAILY 05/13/20 10/16/21 spironolactone 25 mg tablet 25 mg PO DAILY 05/13/20 10/16/21 clopidogrel 75 mg tablet 75 mg PO DAILY 02/08/21 10/16/21 aspirin 81 mg tablet 81 mg PO DAILY 06/14/21 10/16/21 metoprolol succinate 100 mg 50 mg PO BID 07/18/21 10/16/21 tablet,extended release 24 hr sacubitril 24 mg-valsartan 26 mg 1 tablet PO BID 07/18/21 10/16/21 tablet (Entresto) Allergies Allergy/AdvReac Type Severity Reaction Status Date / Time No Known Allergies Allergy Verified 10/16/21 10:52 Review of Systems Review of Systems: All systems reviewed & are unremarkable except as noted in HPI and below Constitutional: Constitutional: Denies chills, Denies fatigue and Denies fever(s) ENT: Reports nasal congestion and Denies sore throat Cardiovascular: Cardiovascular: Denies chest pain, Denies rapid heart rate and Denies radiating jaw, neck or arm pain Respiratory: Respiratory: Denies cough and Denies dyspnea Gastrointestinal: Gastrointestinal: Denies abdominal pain, Reports nausea and Denies vomiting Genitourinary: Genitourinary: Denies nocturia, Denies dysuria and Denies flank pain Neurologic: Reports dizziness, Reports syncope, Denies headache(s) and Denies focal weakness PMFSH Past Medical History Medical History (Updated 02/21/22 @ 23:22 by Priyank Pena MD) Acute hyperkalemia Acute kidney injury superimposed on chronic kidney disease Cardiac device in situ 2018 Heart disease Hemorrhoids HTN (hypertension) Metabolic acidosis Surgical History Surgical History Heart valve replaced (~2016) History of aortic valve replacement with bioprosthetic valve 2016 History of cholecystectomy (~1972) S/P triple vessel bypass (~2016) Family History Family History Mother Hypertension Cataract Glaucoma Father Heart disease Hypertension Social History Social History Alcohol intake: never Substance use: never Gender identity (if verbalized by the patient): Female Spiritual care concerns: No Exam Narrative: GENERAL: Well-appearing, well-nourished, and in no acute distress. HEAD: Normocephalic, atraumatic. EYES: PERRL and EOMI. ENT: Mucous membranes moist. TMs normal bilaterally. NECK: Supple. CHEST: Clear to auscultation. No respiratory distress. HEART: Bradycardic and irregular. Normal peripheral pulses. ABDOMEN: Soft, nontender, nondistended. EXTREMITIES: Normal range of motion. No edema. SKIN: Warm, dry, no rash. NEURO: Alert and oriented x3. No upper or lower extremity drift. Normal ohtd-bc-zska testing. Normal finger-nose testing. Crania
[2022-02-21 22:30] VITALS: BP 141/59; PULSE 63; RESP 20; O2SAT 96
[2022-02-21 23:10] VITALS: BP 113/96; PULSE 64; RESP 18; O2SAT 96
[2022-02-21 23:13] LABS: SARS-CoV-2 RNA PCR Negative
[2022-02-22] VITALS (12 sets, daily range): BP systolic 113–135; BP diastolic 47–61; PULSE 59–85; RESP 15–18; TEMP 36.1–36.6; O2SAT 95–100; BMI 28.0
[2022-02-22] MEDS: MECLIZINE HCL 25 MG TABLET PO (00:11)
--- NOTE | 2022-02-22 00:58 | PM.IMHP ---
H&P: HPI History of Present Illness Date/Time: 02/22/22 00:58 Chief Complaint: Syncope Narrative: This is a 76-year-old female with past medical history significant for AICD in place, congestive heart failure, hypertension, chronic kidney disease. Patient has been her usual state of health up until today when after having dinner at local restaurant and walking back to her car in the parking lot felt lightheaded once inside the car patient had an episode of unresponsiveness and was brought to the emergency room for further evaluation. Patient denies any chest pain, palpitations, nausea, vomiting, no fevers, no rigors, no chills. In emergency room device interrogation did not show any acute arrhythmias. Patient is being admitted for further evaluation management and treatment. Review of Systems Review of Systems: Syncope Constitutional: Constitutional: Denies chills, Denies fatigue, Denies fever(s), Denies poor appetite and Denies weakness Eyes: Eyes: Denies change in vision ENT: Denies dysphagia, Denies nasal congestion and Denies nasal discharge Cardiovascular: Cardiovascular: Denies pedal edema, Denies irregular heart rhythm, Denies claudication, Denies leg edema, Reports lightheadedness, Denies radiating jaw, neck or arm pain, Denies palpitations, Denies dyspnea on exertion, Denies orthopnea and Denies paroxysmal nocturnal dyspnea Respiratory: Respiratory: Denies chest congestion, Denies cough, Denies excessive phlegm production, Denies pain on inspiration and Denies dyspnea Gastrointestinal: Gastrointestinal: Denies abdominal pain, Denies dyspepsia, Denies heartburn, Denies nausea and Denies vomiting Genitourinary: Genitourinary: Denies dysuria Musculoskeletal: Musculoskeletal: Denies abnormal gait, Denies arthralgias and Denies joint swelling Integumentary/Breasts: Skin/Breast: Denies rash Neurologic: Reports dizziness, Reports syncope, Denies focal weakness and Denies Sensory deficit (Neuro) Psychiatric: Psychiatric: Reports no additional psychiatric complaints and Reports as per HPI Endocrine: Endocrine: Denies cold intolerance, Denies heat intolerance, Denies polyphagia, Denies polydipsia, Denies polyuria and Denies palpitations Hematologic/Lymphatic: Hematologic/Lymphatic: Reports no additional hematologic/lymphatic complaints and Reports as per HPI Allergic/Immunologic: Allergic/Immunologic: Reports no additional allergic/immunologic complaints and Reports as per HPI [facility] Past Medical History Medical History (Updated 02/21/22 @ 23:22 by Priyank Pena MD) Acute hyperkalemia Acute kidney injury superimposed on chronic kidney disease Cardiac device in situ 2018 Heart disease Hemorrhoids HTN (hypertension) Metabolic acidosis Surgical History Surgical History Heart valve replaced (~2016) History of aortic valve replacement with bioprosthetic valve 2016 History of cholecystectomy (~1972) S/P triple vessel bypass (~2016) Family History Family History Mother Hypertension Cataract Glaucoma Father Heart disease Hypertension Social History Social History Smoking packs per day: 0.5 Smoking cigarettes per day: 10.0 Years smoked: 20 Smoking pack-years: 10.00 Smoking status: Former smoker Tobacco type: cigarettes Second hand tobacco smoke exposure: No Additional smoking assessment comments: Quit smoking approx 10 years ago Alcohol intake: current Drinks per week: 1 Substance use: never Gender identity (if verbalized by the patient): Female Spiritual care concerns: No Meds Home Medications and Allergies Home Medications Medication Instructions Recorded Confirmed Type atorvastatin 80 mg tablet 80 mg PO DAILY 05/13/20 02/22/22 History clopidogrel 75 mg tablet 75 mg PO DAILY
[2022-02-22 01:09] LABS: Troponin I 0.033 ng/mL (0.000-0.034)
--- NOTE | 2022-02-22 02:20 | PC.NURSE ---
This patient, Jessenia Padilla, was admitted to IMU Room 213-01 at 0200. Patient/family oriented to hospital policies and general routines including ID bracelet, bed and alarms, visiting hours, pain management, procedures, bathroom and other care routines, personal items, smoking policy, room service/diet, and visiting hours. Information on how to activate the Rapid Response Team has been discussed. Patient/Family are encouraged to report perceived risks to care and to ask questions if they do not understand what they are told or what they should do.
[2022-02-22 03:57] LABS: Troponin I 0.028 ng/mL (0.000-0.034)
[2022-02-22] MEDS: ATORVASTATIN 40 MG TABLET 80 MG PO (08:10)
[2022-02-22] MEDS: ASPIRIN 81 MG CHEWABLE TABLET PO (08:10)
[2022-02-22] MEDS: TORSEMIDE 10 MG TABLET PO (08:10)
[2022-02-22] MEDS: SACUBITRIL/VALSARTAN 24-26 MG TABLET 1 TAB PO (08:10)
[2022-02-22] MEDS: CLOPIDOGREL BISULFATE 75 MG TABLET PO (08:11)
[2022-02-22] MEDS: METOPROLOL SUCCINATE EXT REL 50 MG TABCR PO (08:11)
[2022-02-22] MEDS: allopurinoL 300 MG TABLET BY MOUTH (08:11)
--- NOTE | 2022-02-22 11:46 | PM.DS ---
DS: Admitting Diagnosis Discharge Date February 22, 2022 Admitting Diagnosis syncope DS: Discharge Diagnosis Discharge Diagnosis (1) Syncope: Code(s): R55 - Syncope and collapse Status: Acute (2) Elevated troponin: Code(s): R77.8 - Other specified abnormalities of plasma proteins Status: Acute (3) Dizziness: Code(s): R42 - Dizziness and giddiness Status: Acute (4) Chronic CHF (congestive heart failure): Qualifiers: Heart failure type: unspecified Qualified Code(s): I50.9 - Heart failure, unspecified Code(s): I50.9 - Heart failure, unspecified Status: Acute (5) ICD (implantable cardioverter-defibrillator) in place: Code(s): Z95.810 - Presence of automatic (implantable) cardiac defibrillator Status: Acute (6) Ischemic cardiomyopathy with implantable cardioverter-defibrillator (ICD): Code(s): I25.5 - Ischemic cardiomyopathy; Z95.810 - Presence of automatic (implantable) cardiac defibrillator Status: Acute (7) HTN (hypertension): Qualifiers: Hypertension type: essential hypertension Qualified Code(s): I10 - Essential (primary) hypertension Code(s): I10 - Essential (primary) hypertension Status: Acute (8) CAD (coronary artery disease): Code(s): I25.10 - Atherosclerotic heart disease of [place] coronary artery without angina pectoris Status: Acute DS: Summary Hospital Course Hospital Course: Patient was admitted for a syncopal episode. Workup here was essentially unrevealing showed a mildly elevated troponin but it normalized. She does have slightly reduced correct clearance as well. This was thought to be related to type 2 [place]. She has no cardiac symptoms no arrhythmias no chest pain or shortness of breath really feels perfectly normal and back to the how she fell previously. I gave her the option for cardiac workup here but she refused she is able to get hold of her tetryl screen operator at [place] to her appointment up the next couple days. To note she also does have a history of carotid stenosis which is being followed a part as well. I offered to get her carotid duplex which she was going to follow up with [place] for this as well in the next week or 2. Time Spent with Patient Time attestation: Total time spent providing and/or coordinating discharge services: DS: Data Data Completed and Pending Labs on day of discharge: Labs from last 24 hours 02/22/22 02/22/22 02/21/22 03:27 00:27 22:30 WBC RBC Hgb Hct MCV MCH MCHC RDW Plt Count MPV Immature Gran % (Auto) Neut % (Auto) Lymph % (Auto) [place] % (Auto) Eos % (Auto) Baso % (Auto) Lymph # (Auto) [place] # (Auto) Eos # (Auto) Baso # (Auto) Abs Immat Gran (auto) Absolute Neuts (auto) Absolute Nucleated RBC Nucleated RBC % PT INR APTT Sodium Potassium Chloride Carbon Dioxide Anion Gap BUN Creatinine Estim Creat Clear Calc Estimated GFR Glucose Calcium Total Bilirubin AST ALT Alkaline Phosphatase Troponin I 0.028 0.033 D Total Protein Albumin SARS-CoV-2 RNA (RT-PCR) Negative 02/21/22 02/21/22 02/21/22 21:09 21:09 21:09 WBC 8.7 RBC 3.19 L Hgb 9.5 L Hct 30.3 L MCV 95.0 MCH 29.8 MCHC 31.4 L RDW 20.2 H Plt Count 151 MPV 10.7 H Immature Gran % (Auto) 0.9 H Neut % (Auto) 67.0 Lymph % (Auto) 18.8 [place] % (Auto) 8.9 H Eos % (Auto) 3.8 Baso % (Auto) 0.6 Lymph # (Auto) 1.64 [place] # (Auto) 0.8 H Eos # (Auto) 0.3 Baso # (Auto) 0.1 Abs Immat Gran (auto) 0.08 H Absolute Neuts (auto) 5.9 Absolute Nucleated RBC 0.0 Nucleated RBC % 0.2 PT 14.8 H INR 1.2 APTT 32.8 Sodium 141 Potassium 4.0 Chloride 108 H Carbon Dioxide 21 L Anion Gap 12 BUN 44 H D Creatinine 1.30 H Estim Creat Clear Calc
--- NOTE | 2022-02-22 11:46 | PC.NURSE ---
Patient states her field traffic investigator would like a carotid doppler test preformed. She states she is scheduled for one next Friday but would be interested in having one here at this time. Discussed order request with Dr. Khanna. Dr. Khanna recommends patient stay and be seen by our cardiology and have carotid ultrasound done. Patient states she spoke with her field traffic investigator's DISTRIBUTION SUPERINTENDENT and they can schedule her previously scheduled carotid ultrasound for an earlier date. Patient would like to be discharged and to follow up with her own cardiology team.
== END 2022-02-22 12:32 | disposition home or self-care (01) ==
LOC: ANHED 23:22 → ANHIMU 02-22 03:37
PROVIDERS: Admitting Provider Internal Medicine; Emergency Provider Emergency Medicine; PCP Family Medicine; Visit Provider Chiropractor
DX: R55 Syncope and collapse (principal); R77.8 Other specified abnormalities of plasma proteins; I25.10 Atherosclerotic heart disease of native coronary artery without angina pectoris; I11.0 Hypertensive heart disease with heart failure; I50.9 Heart failure, unspecified; I25.5 Ischemic cardiomyopathy; Z95.4 Presence of other heart-valve replacement; Z95.1 Presence of aortocoronary bypass graft; Z79.02 Long term (current) use of antithrombotics/antiplatelets; Z79.82 Long term (current) use of aspirin; Z95.810 Presence of automatic (implantable) cardiac defibrillator; Z87.891 Personal history of nicotine dependence; Z20.822 Contact with and (suspected) exposure to COVID-19
CPT/HCPCS: 36415; 70450; 71046; 71250; 80053; 84484; 85025; 85610; 85730; 93005; 99285; A9270; C9803; G0378; U0003; U0005

== ENCOUNTER 2022-03-01 19:35 | Emergency (ER) | payer MEDICARE, SELFPAY ==
--- NOTE | 2022-03-01 20:00 | PC.NURSE ---
Please see code sheet for documentation.
--- NOTE | 2022-03-01 20:22 | ED.CPR ---
HPI - CPR General Chief Complaint: Syncope Stated Complaint: syncopal episode and bradycardia Time Seen by Provider: 03/01/22 20:16 Related Data Home Medications Medication Instructions Recorded Confirmed atorvastatin 80 mg tablet 80 mg PO DAILY 05/13/20 02/22/22 clopidogrel 75 mg tablet 75 mg PO DAILY 02/08/21 02/22/22 aspirin 81 mg tablet 81 mg PO DAILY 06/14/21 02/22/22 metoprolol succinate 100 mg 50 mg PO BID 07/18/21 02/22/22 tablet,extended release 24 hr sacubitril 24 mg-valsartan 26 mg 1 tablet PO BID 07/18/21 02/22/22 tablet (Entresto) torsemide 20 mg tablet 0.5 tablet PO USEASDIRECTD 02/22/22 02/22/22 Allergies Allergy/AdvReac Type Severity Reaction Status Date / Time No Known Allergies Allergy Verified 10/16/21 10:52 [facility] Past Medical History Medical History (Updated 03/02/22 @ 00:00 by Yu Jones) Acute hyperkalemia Acute kidney injury superimposed on chronic kidney disease Cardiac device in situ 2018 Heart disease Hemorrhoids HTN (hypertension) Metabolic acidosis Surgical History Surgical History Heart valve replaced (~2016) History of aortic valve replacement with bioprosthetic valve 2016 History of cholecystectomy (~1972) S/P triple vessel bypass (~2016) Family History Family History Mother Hypertension Cataract Glaucoma Father Heart disease Hypertension Social History Social History Smoking packs per day: 0.5 Smoking cigarettes per day: 10.0 Years smoked: 20 Smoking pack-years: 10.00 Smoking status: Former smoker Tobacco type: cigarettes Second hand tobacco smoke exposure: No Additional smoking assessment comments: Quit smoking approx 10 years ago Alcohol intake: current Drinks per week: 1 Substance use: never Gender identity (if verbalized by the patient): Female Spiritual care concerns: No Course Course Emergency Course: Patient turned [facility] for syncopal event and shortness of breath. On arrival patient was somnolent unresponsive immediately came to bedside EMS was BVM in the patient and there was no pulse immediately started chest compressions. Patient had ROSC after 1-2 rounds of CPR. Her cardiac pacemaker was pacing at 40 with transcutaneous pacer up to 60 she seemed more responsive however again decompensated and was without a problem. We resumed compressions was predominantly in PEA she was given multiple rounds of epinephrine and bicarb. Patient additionally was given D50 amiodarone and magnesium. She had a few episodes of V. fib which was defibrillated. We also intubated the patient. There is a large amount of blood in the oropharynx and through the ET tube. There is good color change and aeration appreciated in the bilateral lungs. we suctioned multiple times from the ET tube There is also small oozing blood noted around her IV sites. Patient was coded for approximately 30 to 40 minutes without return of spontaneous circulation. Family was kept updated on the events. I discussion with the family prior to calling the code regarding anticipated futility of continued efforts. Family is comfortable ceasing resuscitative efforts at that time. Patient's last rhythm was PEA. Procedures Intubation Intubation #1: Intubation Date: 03/01/22 Time out performed: No sedative: none Laryngoscope: fiber optic video scope Tube Size (cm): 7.5 Method of Intubation: orotracheal Number of Attempts: 2 Tube Secured Depth (cm): 24 Tube Secured Location: teeth Tube Placement Confirmation: visualized tube passing through cords, equal breath sounds bilaterally and confirmation by capnometry Patient Tolerated Procedure: other (pt unresopnsive through ) Intubation Complications: difficult i
--- NOTE | 2022-03-01 21:01 | PC.NURSE ---
pt jewelry given to family at this time. family given 4 earrings, 2 rings, 1 watch.
--- NOTE | 2022-03-01 21:31 | PC.NURSE ---
Sandhya, boarding house manager and this RN obtained telephone consent for pt to be released to [facility] in [place], [place]. [phone]. Per [facility], pt not a candidate. [facility] en route to ER.
== END 2022-03-01 21:52 | disposition expired ==
PROVIDERS: Emergency Provider Emergency Medicine; PCP Family Medicine
DX: I49.01 Ventricular fibrillation (principal); I46.9 Cardiac arrest, cause unspecified; Z95.0 Presence of cardiac pacemaker; I12.9 Hypertensive chronic kidney disease with stage 1 through stage 4 chronic kidney disease, or unspecified chronic kidney disease; N18.9 Chronic kidney disease, unspecified; Z95.2 Presence of prosthetic heart valve; Z95.1 Presence of aortocoronary bypass graft; Z87.891 Personal history of nicotine dependence
CPT/HCPCS: 31500; 92950; 96374; 96375; 99285; J0171; J0282; J3475